=== PATIENT | female | born 1965 | race Caucasian/White ===

== ENCOUNTER 2024-11-03 15:07 | Emergency (ER) | payer OTHER, BC ==
[~2024-11-03] VITALS: Ht 167.6 cm; Wt 103.0 kg
[2024-11-03 15:41] VITALS: BP 128/78; TEMP 97.9
[2024-11-03 18:00] VITALS: O2SAT 99
== END 2024-11-03 18:01 | disposition home or self-care (01) ==
LOC: ER 15:13
DX: S63.601A Unspecified sprain of right thumb, initial encounter (principal); M79.645 Pain in left finger(s); M25.552 Pain in left hip; M25.551 Pain in right hip; Z96.643 Presence of artificial hip joint, bilateral; W18.39XA Other fall on same level, initial encounter; Y93.89 Activity, other specified; Y92.89 Other specified places as the place of occurrence of the external cause; Y99.8 Other external cause status
CPT/HCPCS: 73552